=== PATIENT | male | born 1960 | race Caucasian/White ===

== ENCOUNTER 2016-09-09 12:11 | Emergency (ER) | payer BC ==
--- NOTE | ~2016-09-09 | US85 ---
[facility] A Service of [facility] RADIOLOGY TEXT RESULTS PATIENT: SARAH THOMPSON LOCATION: [facility] : 62 UNIT #: [id number] AGE: [address]: Yaritza Friedman SEX: M ORDER DR: [id number] [facility] [address] [place], [place] [address] [id number] MR#: [id number] Acc #: [id number] NAME: SARAH THOMPSON : 1960 SEX: M STUDY DATE/TIME: 09/09/2016 12:42 UNIT: [facility] ROOM: STUDY DESCRIPTION: [facility] [employer] [facility] Attending Physician: Yaritza Friemdan P.A.-C. Ordering Physician: Yaritza Friedman P.A.-C. Primary Care Physician: Primary Care Physician No MEDICAL IMAGING REPORT This report is preliminary unless electronic signature is present EXAM Left lower extremity Doppler venous ultrasound date: 09/09/2016 HISTORY Left leg pain for 2 weeks worse over the past 3 days. Intermittent swelling for the past 2 weeks. COMPARISON Left lower extremity Doppler venous ultrasound 04/25/2012. TECHNIQUE Venous ultrasound examination of the left lower extremity was performed using grayscale, spectral Doppler and color flow Doppler imaging. FINDINGS The examination is negative. There is no evidence of left lower extremity deep venous thrombus from the groin to the lower calf. Visualized greater saphenous vein is also patent. IMPRESSION Negative examination. No evidence of left lower extremity deep venous thrombosis. Dictated by... Sherri Mayfield M.D. THIS IS AN ELECTRONICALLY VERIFIED REPORT Sherri Mayfield M.D. at 09/10/2016 7:03 AM MAX/jessika TD: 09/09/2016 14:23 JOB #: [id number] [facility] A Service [facility] RADIOLOGY TEXT RESULTS PATIENT: SARAH THOMPSON LOCATION: [facility] : 62 UNIT #: [id number] AGE: [address]: Yaritza Friedman SEX: M ORDER DR: MEDICAL IMAGING REPORT Page 1 of 1 COPY
[~2016-09-09 12:11] MED LIST: COZAAR100 MG PO; LIPITOR PO; METFORMIN HCL1000 M1 PO; NOVOPEN ECHO1 EACH SQ
== END 2016-09-09 13:58 | disposition home or self-care (01) ==
LOC: CFTX 12:11
DX: M79.652 Pain in left thigh (principal); M79.662 Pain in left lower leg; E11.9 Type 2 diabetes mellitus without complications; I10 Essential (primary) hypertension; E78.5 Hyperlipidemia, unspecified
CPT/HCPCS: 93971; 99284